=== PATIENT | male | born 1955 | race Caucasian/White ===

== ENCOUNTER → 2016-10-08 | Outpatient (CLI) | payer BC ==
[~2016-10-08] MED LIST: COLACE100 MG PO; DILAUDID 2MG(HYD2 MG PO; MIRALAX17 GM PO; NEURONTIN300 MG PO; TYLENOL EXTRA500 MG PO; ULTRAM50 MG PO; VITAMIN E1000 UNI1 PO; XARELTO10 MG PO; ZYLOPRIM100 MG PO
== END | disposition disaster alternative care site (69) ==
LOC: LNEW 15:59
DX: M87.051 Idiopathic aseptic necrosis of right femur (principal)

== ENCOUNTER 2016-10-27 10:00 | Inpatient (IN) | payer BC ==
[~2016-10-27] VITALS: Ht 175.3 cm; Wt 103.8 kg
--- NOTE | ~2016-10-27 | HP ---
PATIENT'S NAME: JOELLE BOSTON [facility] AGE: 61 Y [address] ROOM: [place] [address] LOCATION: [facility] ADMIT DATE: 11/03/2016 History & Physical DISCHARGE DATE: FAMILY PHYSICIAN: Arsenio Rodriguez MD ATTENDING PHYSICIAN: WILBERTO ALONZO DATE OF SERVICE: CHIEF COMPLAINT: Right hip pain. HISTORY OF PRESENT ILLNESS: The patient is a 61-year-old, white male who was admitted to the hospital today 11/03/2016 with a diagnosis of end-stage DJD, right hip. The patient was taken to the operating room this morning by Dr. Wilberto Alonzo, Orthopedic Surgeon and has under undergone an uncomplicated right total hip arthroplasty. When I see the patient postop, his son and were present for the interview. He does not complain of chest pain, shortness of breath, nausea or vomiting. His pain control is adequate. He is on O2 per nasal cannula. He relates that he had trauma to the hip 2016, which is well documented. His preop history and physical per Dr. Wilberto Alonzo. The patient also has a history of gout. I told the patient, I would follow him postop for pain management as a family doctor. CURRENT MEDICATIONS: 1. Allopurinol 100 mg a day. 2. Vitamin E 1000 units per day. 3. Ultram 50 as needed. ALLERGIES: NO KNOWN DRUG ALLERGIES. PREVIOUS OPERATIONS: Nephrectomy. SOCIAL HISTORY: Does not smoke. Does not drink alcohol. Was a former smoker. FAMILY HISTORY: Negative for problems with bleeding or general anesthesia. IMMUNIZATIONS: Status unknown. PATIENT'S NAME: JOELLE BOSTON [facility] AGE: 61 Y [address] ROOM: [address] [address] LOCATION: [facility] ADMIT DATE: 11/03/2016 History & Physical DISCHARGE DATE: FAMILY PHYSICIAN: Arsenio Rodriguez MD ATTENDING PHYSICIAN: WILBERTO ALONZO REVIEW OF SYSTEMS: HEENT: He has had no visual changes. No earache. No sore throat. ENDOCRINE: He is not diabetic. There is no thyroid disease. LUNGS: No history of asthma, shortness of breath, or previous pulmonary embolus. HEART: No history of hypertension. No previous OK or palpitations. GI: No nausea, no vomiting. No history of change in bowel habits. No symptoms of GERD, gallbladder problems or melena. : No dysuria, frequency. No history of BPH. Has had a nephrectomy type, site unknown. EXTREMITIES: History of end-stage DJD, right hip. NEUROLOGIC: No history of seizures, syncope or previous CVA. SKIN: No recent rashes. MENTAL STATUS: No recent depression or anxiety. PHYSICAL EXAMINATION: GENERAL: A dark haired male, who is pleasant. Lying in bed with O2 per nasal cannula. He is competent. HEENT: Shows O2 per nasal cannula. TMs not visualized. Pupils react to light. Posterior pharynx clear. NECK: Unremarkable. No adenopathy. No thyroid enlargement. LUNGS: Clear without wheeze or rub. HEART: Shows no murmur, gallop, or rub. ABDOMEN: Soft without point tenderness or mass. PELVIC AND RECTAL EXAM: Not done. Dressing in right hip noted. NEUROLOGIC: Cranial nerves intact. No lateralizing signs. Mental status normal postop mental status and cognition. ASSESSMENT: 1. End-stage degenerative joint disease, right hip. 2. Status post right total hip arthroplasty today. 3. Gout. 4. History of nephrectomy. PLAN: Follow daily. MD JEROD COWAN/modrebekah PATIENT'S NAME: JOELLE BOSTON [facility] AGE: 61 Y [address] ROOM: [place] [address] LOCATION: [facility] ADMIT DATE: 11/03/2016 History & Physical DISCHARGE DATE: FAMILY PHYSICIAN: Arsenio Rodriguez MD ATTENDING PHYSICIAN: WILBERTO ALONZO /[id number] D: [id number] T: [id number] HISTORY & PHYSICAL
--- NOTE | ~2016-10-27 | OR ---
PATIENT'S NAME: JOELLE BOSTON [facility] AGE: 61 Y [address] ROOM: [address] [address] LOCATION: [facility] ADMIT DATE: 11/03/2016 OR/Procedure Report DISCHARGE DATE: FAMILY PHYSICIAN: Arsenio Rodriguez MD ATTENDING PHYSICIAN: WILBERTO ALONZO SURGEON: Wilberto Alonzo MD REGIONAL EDUCATION COORDINATOR: Everett Trinidad, FOREST ENGINEER/ADMINISTRATIVE RECEPTIONIST and Dr. Wilberto Ramirez DATE OF PROCEDURE: 11/03/2016 PRE-OP DIAGNOSIS: Avascular necrosis with secondary degenerative joint disease, right hip. POST-OP DIAGNOSIS: Avascular necrosis with secondary degenerative joint disease, right hip. OPERATION: Right total hip arthroplasty with Aerospike robotic arm assistance and computer navigation. ANESTHESIA: Spinal anesthesia plus subcutaneous and periarticular local anesthesia (ropivacaine with epinephrine and Toradol). ESTIMATED BLOOD LOSS: Approximately 250 mL. DRAIN: None. SPECIMEN: Femoral head to pathology: Avascular necrosis and degenerative joint disease. Rule out malignancy. COMPLICATIONS: None. IMPLANTS: 1. Jocelyn Trident Tritanium size 56 mm hemisphere uncemented acetabular shell with 1 dome hole cover and no screws. 2. [place] X3 neutral acetabular polyethylene liner with 36 mm inner diameter. 3. [place] Accolade 2 size 6 high offset uncemented femoral component. 4. 36-mm diameter Biolox femoral head with +2.5 mm neck length. INDICATION FOR SURGERY: The patient is a 61-year-old male who presents with advanced right hip avascular necrosis with secondary degenerative joint disease and associated severely compromised activities of daily living. The patient has decided to proceed with hip replacement after having been thoroughly counseled regarding the associated risks, benefits, and limitations. We have specifically reviewed the risks and implications of PATIENT'S NAME: JOELLE BOSTON [facility] AGE: 61 Y [address] ROOM: [address] [address] LOCATION: [facility] ADMIT DATE: 11/03/2016 OR/Procedure Report DISCHARGE DATE: FAMILY PHYSICIAN: Arsenio Rodriguez MD ATTENDING PHYSICIAN: WILBERTO ALONZO infection, deep venous thrombosis, pulmonary embolism, mortality, neurovascular complications, blood transfusion (and associated potential for disease transmission or transfusion reaction), stiffness, instability, leg length discrepancy, mechanical deterioration of the components (due to wear and to loosening), and the potential need for revision. DESCRIPTION OF PROCEDURE: The patient was positioned in a lateral decubitus position with the right side up after administration of anesthesia and prophylactic antibiotics. An axillary roll was placed and the non-operative leg was well padded. The pelvis was locked perpendicularly to the floor on a pegboard. The right hip and entire operative extremity were prepped and draped with vigilant sterile technique. The patient's name as well as the intended operative side and procedure were confirmed with a verbal time-out involving myself, the circulating nurse, the scrub nurse, and the anesthesiologist. The right hip was approached through a standard posterolateral incision. The fascia gauri and the gluteus dolores fascia were sharply divided in line with the overlying skin incision. The sciatic nerve was identified and was vigilantly protected throughout the entire case. The short external rotators and posterior capsule were divided from their respective femoral insertions and tagged with four #1 Ethibond sutures for later repair. The hip was posteriorly dislocated with combined flexion, adduction, and internal rotation. The femoral neck osteotomy was performed with an oscillating saw. Inspection of the femoral head demonstrated a 2 cm diameter area of nondisplaced (but completely delaminated) articular cartilage. This appeared to have adherent subchondral bone on its undersurface. This was nondisplaced. There were extensive surrounding high-grade partial thickness articular cartilage degeneration. There was no benedict femoral head collapse. Circumferential acetabular exposure was obtained. Examination of acetabulum demonstrated no dysplasia. There was a large effusion consisting of benign- appearing translucent synovial fluid. There was a 1 cm diameter region of full-thickness articular cartilage anterosuperiorly. There were no loose bodies. Remnants of the acetabular labrum were sharply thoroughly excised. The acetabulum was sequentially progressively reamed up to 56 mm with hemispherical power reamers. It should be noted that the acetabulum was reamed using the Aerospike robotic arm guidance system and computer navigation. The final acetabular shell was impacted into position in 20 degrees of anteversion and 45 degrees of inclination. An excellent press-fit was obtained. No supplemental dome screw fixation was necessary. It should be noted that the acetabular shell was impacted with the assistance of the Monogramo robotic arm guidance system. A neutral trial liner was inserted. PATIENT'S NAME: JOELLE BOSTON [facility] AGE: 61 Y [address] ROOM: [address] [address] LOCATION: [facility] ADMIT DATE: 11/03/2016 OR/Procedure Report DISCHARGE DATE: FAMILY PHYSICIAN: Arsenio Rodriguez MD ATTENDING PHYSICIAN: WILBERTO ALONZO Attention was next focused upon femoral preparation. The femoral canal initiator was utilized. No reaming was performed (except for with the canal finder). The femoral canal was subsequently sequentially progressively broached up to a size 6. The 6 broach obtained excellent axial and rotational stability. Trial reductions with the above specified construct yielded acceptable stability and acceptable reproduction of leg length and offset. All trial components were removed. The final acetabular liner was inserted with excellent circumferential visualization of its locking mechanism to assure adequate deployment. The final femoral component was impacted into position. The femoral component achieved excellent axial and rotational stability. The trunnion of the femoral component was vigilantly protected prior to placement of the femoral head. The trunnion of the femoral component was thoroughly cleaned and dried prior to placement of the femoral head. The incision was thoroughly irrigated with bacteriostatic pulsatile saline lavage multiple times throughout the case. The entire joint space was thoroughly inspected and thoroughly irrigated to assure that there was no residual debris of any sort. A final reduction was then performed. After final reduction, the hip could be firmly externally rotated in full extension and zero degrees of abduction without anterior subluxation. In neutral rotation and zero degrees of abduction, the hip could be firmly flexed to 120 degrees without instability. At 90 degrees of flexion and zero degrees abduction, the hip could be internally rotated to 55 degrees before there was any hint of posterior subluxation. The posterior capsule and short external rotators were repaired through two drill holes in the posterior aspect of the greater trochanter. The fascia gauri and gluteus dolores fascia were closed with multiple simple and vecoea-ca-hapnt interrupted # 1 Ethibond and #1 Vicryl sutures. Subcutaneous tissues were thoroughly re-irrigated with bacteriostatic pulsatile saline lavage. Subcutaneous tissues were re-approximated with simple buried interrupted #0 Vicryl sutures. The skin was closed with superficial buried interrupted 2-0 Vicryl sutures followed by a running subcuticular 3-0 Monocryl suture, followed by Octylseal, followed by Steri- Strips with benzoin, followed by an occlusive Mepilex dressing. There were no intra-operative complications. It should be noted that an accessary 4-cm incision was made obliquely over the anterior iliac crest through which three partially threaded Steinmann pins PATIENT'S NAME: JOELLE BOSTON [facility] AGE: 61 Y [address] ROOM: [place] [address] LOCATION: [facility] ADMIT DATE: 11/03/2016 OR/Procedure Report DISCHARGE DATE: FAMILY PHYSICIAN: Arsenio Rodriguez MD ATTENDING PHYSICIAN: WILBERTO ALONZO were placed between the inner and outer tables of the anterior iliac wing to anchor the computer navigation guidance array. These three pins were removed intact at the conclusion of the case, and the accessary incision was thoroughly irrigated with bacteriostatic pulsatile saline lavage and infiltrated subcutaneously with local anesthetic. The incision was closed with simple deep interrupted 0 Vicryl followed by superficial buried interrupted 2-0 Vicryl and a running subcuticular 3-0 Monocryl suture followed by Dermabond followed by Steri-Strips with benzoin and occlusive Mepilex dressings. MD JAVIER MURRAY/lilibeth /[id number] d: 11/03/162324 t: 11/12/162035, OPERATIVE SUMMARY
--- NOTE | ~2016-10-27 | DS ---
PATIENT'S NAME: JOELLE BOSTON [facility] AGE: 61 Y [address] ROOM: [place] [address] LOCATION: [facility] ADMIT DATE: 11/03/2016 Discharge Summary DISCHARGE DATE: 11/04/2016 FAMILY PHYSICIAN: Arsenio Rodriguez MD ATTENDING PHYSICIAN: Gustavo Grullon PRIMARY DIAGNOSIS: Right hip degenerative joint disease and avascular necrosis. SECONDARY DIAGNOSIS: History of gout. PROCEDURE PERFORMED: Right total hip arthroplasty. HISTORY: The patient is a 61-year-old male, who presents with advanced right hip degenerative joint disease and associated severely compromised activities of daily living. The patient has decided to proceed with total right hip arthroplasty after having been thoroughly counseled regarding the risks, benefits, limitations and alternatives. Please refer to the outpatient clinic notes and admission history and physical for this patient. HOSPITAL COURSE: The patient underwent a total right hip arthroplasty on 11/03/2016 without complications. Spinal anesthesia plus subcutaneous and periarticular local anesthesia were utilized. The patient received 24 hours of perioperative prophylactic antibiotics and remained hemodynamically stable, neurovascularly intact throughout the entire hospital course. The postoperative prophylactic deep venous thrombosis prophylaxis consisted of Xarelto, early mobilization, and pneumatic compression devices. Daily physical therapy for gait training, transfer training, and reinforcement of hip dislocation precautions were received. The patient progressed well in physical therapy. On the date of discharge, 11/04/2016, the incision at the hip was healing well and showed no signs of infection. DISPOSITION: Home. DISCHARGE ACTIVITY: The patient is to bear weight as tolerated with strict hip dislocation precautions as instructed. There are to be no dressing changes. Dr. Grullon is to be notified immediately if there is any increased pain, fevers, chills, erythema or drainage. DISCHARGE MEDICATIONS: 1. Xarelto 10 mg one tablet p.o. daily for 12 days for postoperative DVT prophylaxis. 2. Gabapentin 300 mg one tablet p.o. every night for pain for seven days. 3. Hydromorphone 2 mg one to two tablets p.o. every 4 hours p.r.n. for pain. PATIENT'S NAME: JOELLE BOSTON [facility] AGE: 61 Y [address] ROOM: [place] [address] LOCATION: [facility] ADMIT DATE: 11/03/2016 Discharge Summary DISCHARGE DATE: 11/04/2016 FAMILY PHYSICIAN: Arsenio Rodriguez MD ATTENDING PHYSICIAN: Gustavo Grullon He was then instructed to continue all his other pre-admission medications as instructed by his Internal Medicine doctor. FOLLOWUP: Followup appointment is to be with Dr. Grullon's office on 11/12/2016 for his initial postoperative evaluation. MARIMAR ABRAHAM PA-C FOR MD JOY MURRAYW/modl /[id number] d: 11/11/16 0347 t: 11/16/16 0910, DISCHARGE SUMMARY
[2016-10-27] MEDS ORDERED: ULTRAM50 MG PO (10:15)
[2016-10-27] MEDS ORDERED: VITAMIN E1000 UNI1 PO (10:15)
[2016-10-27] MEDS ORDERED: ZYLOPRIM100 MG PO (10:15)
[2016-11-04] MEDS ORDERED: TYLENOL EXTRA500 MG PO (11:31)
[2016-11-04] MEDS ORDERED: COLACE100 MG PO (11:34)
[2016-11-04] MEDS ORDERED: NEURONTIN300 MG PO (11:35)
[2016-11-04] MEDS ORDERED: MIRALAX17 GM PO (11:36)
[2016-11-04] MEDS ORDERED: XARELTO10 MG PO (11:36)
[2016-11-04] MEDS ORDERED: DILAUDID 2MG(HYD2 MG PO (11:37)
== END 2016-11-04 14:45 | disposition disaster alternative care site (69) | DRG 470 ==
LOC: G3N 11-03 08:06
PROVIDERS: ADMIT Orthopaedic Surgery
PROC: 0SR904A Replacement of Right Hip Joint with Ceramic on Polyethylene Synthetic Substitute, Uncemented, Open Approach (ICD-10-PCS; principal; 2016-11-03)
DX: M16.7 Other unilateral secondary osteoarthritis of hip (principal); M87.9 Osteonecrosis, unspecified; M10.9 Gout, unspecified; Z91.81 History of falling; Z90.5 Acquired absence of kidney
CPT/HCPCS: C1713; C1776; J0690; J1100; J1885; J2001; J2250; J2405; J2795; J7030; J7120

== ENCOUNTER → 2016-10-27 | Outpatient (CLI) | payer BC | END | disposition disaster alternative care site (69) | LOC: GRAD 14:00 | DX: Z01.818 Encounter for other preprocedural examination (principal); M25.551 Pain in right hip ==

== ENCOUNTER → 2016-10-29 | Outpatient (CLI) | payer BC | END | disposition disaster alternative care site (69) | LOC: GNJRC 09:47 | DX: Z01.812 Encounter for preprocedural laboratory examination (principal); M16.11 Unilateral primary osteoarthritis, right hip ==